=== PATIENT | male | born 1975 | race African-American/Black ===

== ENCOUNTER 2019-03-02 16:02 | Emergency (ER) | payer OTHER ==
[~2019-03-02] VITALS: Ht 190.5 cm; Wt 139.7 kg
[~2019-03-02 16:02] MED LIST: BACTRIM DS TAB1 EACH PO; KEFLEX500 MG PO; PERCOCET 5-3251 EACH PO
[2019-03-02 16:42] LABS: URINE BLOOD TRACE (Negative); URINE CLARITY CLEAR; URINE COLOR YELLOW; URINE GLUCOSE-RANDOM* NEGATIVE (Negative); URINE KETONES NEGATIVE (Negative); URINE LEUKOCYTES-REFLEX TRACE (Negative); URINE NITRITE-REFLEX NEGATIVE (Negative); URINE PROTEIN (DIPSTICK) NEGATIVE (Negative); URINE SPECIFIC GRAVITY >= 1.030 (1.005-1.035)
[2019-03-02 16:44] LABS: ICTOTEST (BILI CONFIRMATORY) Negative (Negative); URINE BILIRUBIN NEGATIVE (Negative)
[2019-03-02] MEDS ORDERED: AZITHROMYCIN500 MG PO (17:17)
[2019-03-02 17:42] VITALS: BP 121/68
== END 2019-03-02 17:43 | disposition home or self-care (01) ==
LOC: ER 16:02
PROVIDERS: Nurse Practitioner
DX: R30.0 Dysuria (principal); R36.9 Urethral discharge, unspecified; Z20.2 Contact with and (suspected) exposure to infections with a predominantly sexual mode of transmission